=== PATIENT | female | born 2000 | race Two or more races ===

== ENCOUNTER 2018-08-16 13:15 | Emergency (ER) | payer MEDICAID ==
--- NOTE | 2018-08-16 13:30 | Emergency Department Record ---
History of Present Illness - General Chief complaint: ENT Stated complaint: SWELLING BEHIND RT EAR Source: Patient, Family Mode of Arrival: Ambulatory Limitations: No limitations - History of Present Illness Initial comments: 17 yo female presents with concern about swelling the right ear lobe. The onset was about 2 weeks ago. No fevers or chills. No changes in hearing or drainage from the ear. No trauma but it is at the site of a prior ear piercing. She has a history of renal transplant. She was admitted to [facility] for 4 days on antibiotics. She finished Cleocin 3 days ago. She states She does not feel better. She is eating and drinking normally. No fevers. Normal urination. She has not seen an ENT for this issue. She had a nurse follow up on August 11. [facility] Records 08/11/18 Negative HCG CR .77 CBC on 08/11 WBC 3.0 73% N ANC 1.9 H and P 08/04/18 IgA nephropathy s/p transplant 2015 RN Progress note 08/11: "Right ear still has a rather evolved and swollen infectious core from her piercing that is approximately the same size as it was before discharge on Friday. It has a brown scab formed over it..." complaint: Ear pain Location: R ear Severity: Moderate Quality: Aching Consistency: Constant Improves with: None Worsens with: Movement Context- Ear: Other - Related Data Home Medications Medication Instructions Recorded Confirmed Last Taken Amlodipine Besylate [Norvasc] 5 mg PO DAILY 08/16/18 08/16/18 08/16/18 Cholecalciferol (Vitamin D3) 1 tab PO DAILY 08/16/18 08/16/18 08/16/18 [Vitamin D3] Clindamycin HCl 08/16/18 Unknown Isradipine 1 tab PO ASDIR PRN 08/16/18 08/16/18 Unknown Losartan Potassium [Cozaar] 25 mg PO DAILY 08/16/18 08/16/18 08/16/18 Mycophenolate Mofetil [Cellcept] 500 mg PO QAM 08/16/18 08/16/18 08/16/18 Mycophenolate Mofetil [Cellcept] 750 mg PO QPM 08/16/18 08/16/18 08/15/18 Nystatin 100,000 unit PO DAILY 08/16/18 08/16/18 08/16/18 Prednisone [Prednisone 10Mg] 10 mg PO DAILY 08/16/18 08/16/18 08/16/18 Tacrolimus [Prograf] 5 mg PO QHS 08/16/18 08/16/18 08/15/18 Tacrolimus [Prograf] 6 mg PO QAM 08/16/18 08/16/18 08/16/18 Previous Rx's Medication Instructions Recorded Clindamycin HCl [Cleocin HCl] 300 mg PO TID #21 capsule 08/16/18 Allergies Allergy/AdvReac Type Severity Reaction Status Date / Time adhesive tape Allergy ITCHING Verified 08/16/18 13:24 vancomycin Allergy ANAPHYLAXIS Verified 08/16/18 13:24 Review of Systems Constitutional: Denies: Chills, Malaise, Weakness Eyes: Denies: Eye discharge, Eye pain, Photophobia, Vision change ENT: Reports: As per HPI, Ear pain. Denies: Congestion, Throat pain Respiratory: Denies: Cough, Dyspnea Cardiovascular: Denies: Chest pain, Syncope Endocrine: Denies: Fatigue Gastrointestinal: Denies: Abdominal pain, Diarrhea, Nausea, Vomiting Genitourinary: Denies: Dysuria Musculoskeletal: Denies: Arthralgia, Back pain, Joint swelling, Myalgia Skin: Denies: Bruising, Change in color, Rash Neurological: Denies: Headache, Numbness, Tingling, Vertigo Psychiatric: Denies: Anxiety Hematological/Lymphatic: Denies: Easy bleeding, Easy bruising, Swollen glands Physical Exam - General General Appearance: Alert, Oriented x3, Cooperative, No acute distress Limitations: No limitations - Head Head exam: Atraumatic, Normal inspection - Eye Eye exam: Normal appearance, PERRL. negative: Conjunctival injection, Scleral icterus - ENT ENT exam: Mucous membranes moist, Normal orophraynx, TM's normal bilaterally. negative: Mucous membranes dry Nasal Exam: Normal inspection Mouth exam: Normal external inspection Teeth exam: Normal inspection Throat exam: Normal inspection Image of Ears: 1 - firm, scabbed raised area in the area of prior piercing, no pus, no warmth , no drainage, similar appearance on the posterior side, no lobe or ear erythema to suggest cellulitis - Neck Neck exam: Normal inspection. negative: Lymphadenopathy, Tenderness - Respiratory Respiratory exam: Normal lung sounds bilaterally. negative: Wheezes - Neurological Neurological exam: Alert, Oriented X3 - Psychiatric Psychiatric exam: Normal affect, Normal mood. negative: Agitated, Anxious - Skin Skin exam: Dry, Intact, Normal color, Warm Course - Reevaluation(s) Reevaluation #1: No fever on vitals. No prior records on the EMR 08/16/18 13:45 08/16/18 14:11 The physical findings today correspond to the findings on the note on 08/11. The 08/11 note stated there was no change from the time of discharge. She is eating, drinking, urinating normally. Labs from 5 days ago were normal. She is afebrile. I will call her on-call doctor at [facility] to discuss a plan for her unresolving area on the ear. 08/16/18 14:[address] Rojas of the [facility]plant Nephrology [facility]. She has familiarity with the patient. We reviewed the 08/11 labs, todays examination, progress note. The lesion on the right ear does not seem overtly infected on today's examination. There does not appear to be any over cellulitis of the ear. The plan will be to have the Transplant Clinic refer her to ENT [facility]. The Clindamycin will be continued until that time. The patient was instructed to call the document coordinator if anything changes with the right ear findings or go directly to the [facility] ED for evaluation. She is to call immediately if fever, redness or any other concerns. Disposition Disposition: Discharge Clinical Impression: Earlobe lesion Disposition: Home, Self-Care Condition: (1) Good Instructions: Cyst (ED) Additional Instructions: Go to the [facility] ED if you have any fever, new redness or swelling of the ear Take the Clindamycin as directed Call your document coordinator tomorrow to get an update on the ENT referral DO not cut or poke anything in the area on the right ear Prescriptions: Clindamycin HCl [Cleocin HCl] 300 mg PO TID #21 capsule Forms: Patient Portal Access Time of Disposition: 14:30 Quality - Quality Measures Quality Measures: N/A - Blood Pressure Screening Does Patient Have Any of the Following: No Blood Pressure Classification: Normal BP Reading Systolic Measurement: 114 Diastolic Measurement: 72 Screening for High Blood Pressure: < Normal BP, F/U Not Required > [G8701]
== END 2018-08-16 14:35 | disposition home or self-care (01) ==
LOC: ER 13:15
DX: H61.899 Other specified disorders of external ear, unspecified ear (principal); Z94.0 Kidney transplant status
CPT/HCPCS: 99282; 99283

== ENCOUNTER 2018-12-31 12:43 | Emergency (ER) | payer MEDICAID ==
[2018-12-31] MEDS ORDERED: 0.9 % SODIUM CHLORIDE 1000ML 1,000 ML IV ONE (12:46)
--- NOTE | 2018-12-31 12:56 | Emergency Department Record ---
History of Present Illness - General Chief complaint: Flank Pain Stated complaint: KIDNEY AND BACK PAIN/HAD TRANSPLANT Time Seen by Provider: 12/31/18 12:45 Source: Patient, Family Mode of Arrival: Ambulatory Limitations: No limitations - History of Present Illness Initial comments: 18 yo female presents with subjective fever, aches, and pain over her t ransplanted kidney site. She has IgA nephropathy with a transplant in 2016. The onset of the symptoms was last night. She is on her transplant medication. No nausea or vomiting. She has mild back pain. She did have rejection at one point in time when she was off her medications. She has been compliance. [facility] Complaint: Other Onset/Timin -: Days(s) Radiation: R flank, RLQ Severity: Moderate Severity scale (1-10): 7 Quality: Aching Consistency: Constant Improves with: None Worsens with: None Associated Symptoms: Abdominal pain, Fever/chills, Headaches - Related Data Previous Rx's Medication Instructions Recorded Clindamycin HCl [Cleocin HCl] 300 mg PO TID #21 capsule 08/16/18 Allergies Allergy/AdvReac Type Severity Reaction Status Date / Time adhesive tape Allergy ITCHING Verified 12/31/18 12:51 vancomycin Allergy ANAPHYLAXIS Verified 12/31/18 12:51 Travel Screening - Travel/Exposure Within Last 30 Days Have you traveled within the last 30 days?: No Review of Systems Constitutional: Reports: Chills, Fever Eyes: Denies: Eye discharge, Vision change ENT: Denies: Congestion, Throat pain Respiratory: Denies: Cough, Dyspnea, Hemoptysis, Wheezes Cardiovascular: Denies: Chest pain, Palpitations, Syncope Endocrine: Denies: Fatigue, Polydipsia, Polyuria Gastrointestinal: Reports: Abdominal pain. Denies: Nausea, Vomiting Genitourinary: Denies: Dysuria, Urgency Musculoskeletal: Reports: Back pain (mild). Denies: Arthralgia, Myalgia Skin: Denies: Bruising, Change in color, Rash Neurological: Reports: Headache (comes and goes mild). Denies: Numbness, Vertigo, Weakness Psychiatric: Denies: Anxiety Hematological/Lymphatic: Denies: Blood Clots, Easy bleeding, Easy bruising Past Medical History - SOCIAL HISTORY Smoking Status: Never smoker Drug Use: None - RESPIRATORY Hx Respiratory Disorders: No - CARDIOVASCULAR Hx Cardio Disorders: No - NEURO Hx Neuro Disorders: No - GI Hx GI Disorders: No - Hx Genitourinary Disorders: Yes Hx Renal Disease: Yes - ENDOCRINE Hx Endocrine Disorders: No - MUSCULOSKELETAL Hx Musculoskeletal Disorders: No - PSYCH Hx Psych Problems: No - HEMATOLOGY/ONCOLOGY Hx Hematology/Oncology Disorders: No Family Medical History Hx Cancer: Brother/Sister Physical Exam - General General Appearance: Alert, Oriented x3, Cooperative, No acute distress Limitations: No limitations - Head Head exam: Atraumatic, Normal inspection - Eye Eye exam: Normal appearance, PERRL. negative: Conjunctival injection, Scleral icterus - ENT ENT exam: Normal exam, Mucous membranes moist Ear exam: Normal external inspection Nasal Exam: Normal inspection Mouth exam: Normal external inspection - Neck Neck exam: Normal inspection - Respiratory Respiratory exam: Normal lung sounds bilaterally. negative: Respiratory distress, Rhonchi, Stridor, Wheezes - Cardiovascular Cardiovascular Exam: Regular rate, Normal rhythm, Normal heart sounds - GI/Abdominal GI/Abdominal exam: Soft, Tenderness (tender over the scar area of the transplanted kidney). negative: Distended - Rectal Rectal exam: Deferred - exam: Deferred - Extremities Extremities exam: Normal inspection. negative: Pedal edema, Tenderness - Back Back exam: Denies: CVA tenderness (R), CVA tenderness (L), Paraspinal tenderness, Tenderness - Neurological Neurological exam: Alert, Oriented X3 - Psychiatric Psychiatric exam: Normal affect, Normal mood - Skin Skin exam: Dry, Intact, Normal color, Warm Course Vital Signs 12/31/18 12:47 Temperature 98.6 F Pulse Rate 126 H Respiratory 18 Rate Blood Pressure 126/90 Pulse Ox 100 - Reevaluation(s) Reevaluation #1: 12/31/18 13:46 The CBC was reviewed The WBC count is 12 The BMP was reviewed The CR is 1.2 (Prior in October was 0.9 on 11/16/18) 12/31/18 13:46 Waiting for UA. 12/31/18 14:00 CRP is 4 12/31/18 14:05 ESR is 23 12/31/18 14:15 The UCG is negative The UA is N positive and LE positive. Micro pending. 12/31/18 14:20 Micro: 7-10 RBC 36-50 WBC +4 Bacteria 10-15 epi's The patient was informed [facility] education and training coordinator will be called. 12/31/18 14:31 Fanny (disability services coordinator) was contacted. [phone] The recommendation is for transfer to [facility] ED Rocephin was the preferred antibiotic 12/31/18 14:38 Dr Polk accepts the patient for transfer to the [facility] ED for further evaluation 12/31/18 14:53 Medical Decision Making - Lab Data Result diagrams: 12/31/18 13:20 12/31/18 13:20 Disposition Disposition: Transfer Clinical Impression: Complicated urinary tract infection, Renal transplant recipient Disposition: Acute Care Hospital Transfer Transfer To: [facility] Reason For Transfer: Urinary Infection with transplant Accepting Physician: Jam Time Discussed w/Accepting Physician: 14:52 Condition: (2) Stable Forms: Patient Portal Access Time of Disposition: 14:38 Quality - Quality Measures Quality Measures: N/A - Blood Pressure Screening Does Patient Have Any of the Following: No Blood Pressure Classification: Hypertensive Reading Systolic Measurement: 126 Diastolic Measurement: 90 Screening for High Blood Pressure: < Pre-Hypertensive BP, F/U Documented > [G8950] Pre-Hypertensive Follow-up Interventions: Referral to alternative/primary care provider.
[2018-12-31 13:27] LABS: HEMATOCRIT 39.9 % (35.0-47.0); MEAN CELL VOLUME 83.1 fl (81-97); MEAN CORPUSCULAR HEMOGLOBIN 27.1 pg (27-33); MEAN CORPUSCULAR HGB CONC 32.6 g/dl (32-36); MEAN PLATELET VOLUME 11.9 fl (7.4-10.4); PLATELET COUNT 154 K/uL (130-400); WHITE BLOOD COUNT W/O DIFF 12.8 K/uL (4.2-12.2)
[2018-12-31 13:38] LABS: BLOOD UREA NITROGEN 18 mg/dL (6-20); CREATININE 1.2 mg/dL (0.5-0.9); EST GLOMERULAR FILTRATION RATE > 60 mL/min; TOTAL PROTEIN 7.3 g/dL (6.6-8.7)
[2018-12-31 13:40] LABS: GLUCOSE,RANDOM 100 mg/dL (74-109)
[2018-12-31 13:43] LABS: ALB/GLOB RATIO 1.4 (1.1-1.8); ALBUMIN 4.3 g/dL (4.0-5.0); ALKALINE PHOSPHATASE 63 U/L (35-104); ALT/SGPT 7 U/L (<33); AST/SGOT 19 U/L (10.0-35.0)
[2018-12-31] MEDS ORDERED: MORPHINE SULFATE 10MG/1ML **1ML VIAL IVP ONE (14:09)
[2018-12-31 14:10] LABS: URINE BILIRUBIN NEGATIVE (NEGATIVE); URINE BLOOD MODERATE (NEGATIVE); URINE COLOR YELLOW; URINE GLUCOSE (UA) NEGATIVE (NEGATIVE); URINE KETONE TRACE (NEGATIVE); URINE LEUKOCYTE ESTERASE MODERATE (NEGATIVE); URINE NITRITE POSITIVE (NEGATIVE); URINE PROTEIN TRACE (NEGATIVE); URINE UROBILINOGEN 0.2 E.U./dL (0.20 - 1.00)
[2018-12-31 14:12] LABS: URINE APPEARANCE CLOUDY
[2018-12-31 14:13] LABS: HCG,QUALITATIVE URINE NEGATIVE (NEGATIVE)
[2018-12-31 14:16] LABS: URINE WBC 36 - 50 (0-2/hpf)
[2018-12-31 14:17] LABS: URINE BACTERIA 4+
[2018-12-31] MEDS ORDERED: CEFTRIAXONE 1GM/50ML BAG 1 GM/50 ML BAG IVPB ONE (14:35)
[2018-12-31] MEDS ORDERED: ONDANSETRON HCL IV 4 MG/2 ML VIAL IVP ONE (15:22)
== END 2018-12-31 15:25 | disposition short-term general hospital (02) ==
LOC: ER 12:43
DX: N39.0 Urinary tract infection, site not specified (principal); R50.81 Fever presenting with conditions classified elsewhere; R31.29 Other microscopic hematuria; M54.6 Pain in thoracic spine; R51 Headache; Z94.0 Kidney transplant status
CPT/HCPCS: 99285 ×2; 96365; 96375; 96361; 85651; 86140; 80053; 81001; 81025; 85027; J2405; J0696; J2270; J7030

== ENCOUNTER 2019-05-11 16:25 | Emergency (ER) | payer MEDICAID ==
--- NOTE | 2019-05-11 16:42 | Emergency Department Record ---
History of Present Illness - General Chief complaint: Rash Stated complaint: RASH Time Seen by Provider: 05/11/19 16:27 Source: Patient, Family Mode of Arrival: Ambulatory Limitations: No limitations - History of Present Illness Initial comments: 18 yo female presents with many weeks of a rash on the upper chest and back. The skin has areas of lightening of the pigmentation. No redness, sores, blisters, pain or itching. No other associated symptoms related to the rash. Yesterday she states it burned a little bit with urination. No fever. No ab dominal or back pain. Last week she had a soft mucous like bowel movement. She is a renal transplant patient through [facility] complaint: Rash -: Month(s) Location: Chest, Back Severity: Mild Quality: Other (no sensation over the rash) Improves with: None Worsens with: None Context: None Associated symptoms: Denies other symptoms Treatments Prior to Arrival: None - Related Data Previous Rx's Medication Instructions Recorded Cephalexin [Keflex] 500 mg PO QID #40 cap 05/11/19 Ketoconazole [Nizoral] 120 ml TP Q72HR #1 shampoo 05/11/19 Allergies Allergy/AdvReac Type Severity Reaction Status Date / Time adhesive tape Allergy ITCHING Verified 05/11/19 16:36 vancomycin Allergy ANAPHYLAXIS Verified 05/11/19 16:36 Travel Screening - Travel/Exposure Within Last 30 Days Have you traveled within the last 30 days?: No Review of Systems Constitutional: Denies: Chills, Fever, Malaise, Weakness Eyes: Denies: Eye discharge, Eye pain, Photophobia, Vision change ENT: Denies: Congestion, Throat pain Respiratory: Denies: Cough, Dyspnea, Hemoptysis, Wheezes Cardiovascular: Denies: Chest pain, Palpitations, Syncope Endocrine: Denies: Fatigue, Polydipsia, Polyuria Gastrointestinal: Reports: Diarrhea (one time). Denies: Abdominal pain, Constipation, Nausea, Vomiting Genitourinary: Reports: Dysuria (one time yesterday) Musculoskeletal: Denies: Arthralgia, Back pain, Myalgia Skin: Denies: Bruising, Change in color, Lesions, Rash Neurological: Denies: Headache Psychiatric: Denies: Anxiety Hematological/Lymphatic: Denies: Easy bleeding, Easy bruising Past Medical History - SOCIAL HISTORY Smoking Status: Never smoker Drug Use: None - RESPIRATORY Hx Respiratory Disorders: No - CARDIOVASCULAR Hx Cardio Disorders: No - NEURO Hx Neuro Disorders: No - GI Hx GI Disorders: No - Hx Genitourinary Disorders: Yes Hx Renal Disease: Yes - ENDOCRINE Hx Endocrine Disorders: No - MUSCULOSKELETAL Hx Musculoskeletal Disorders: No - PSYCH Hx Psych Problems: No - HEMATOLOGY/ONCOLOGY Hx Hematology/Oncology Disorders: No Family Medical History Hx Cancer: Brother/Sister Physical Exam - General General Appearance: Alert, Oriented x3, Cooperative, No acute distress Limitations: No limitations - Head Head exam: Atraumatic, Normal inspection - Eye Eye exam: Normal appearance, PERRL. negative: Conjunctival injection, Scleral icterus - ENT ENT exam: Normal exam Ear exam: Normal external inspection Nasal Exam: Normal inspection Mouth exam: Normal external inspection - Neck Neck exam: Normal inspection, Full ROM. negative: Lymphadenopathy - Respiratory Respiratory exam: Normal lung sounds bilaterally. negative: Rhonchi, Stridor, Wheezes - Cardiovascular Cardiovascular Exam: Regular rate, Normal rhythm, Normal heart sounds - GI/Abdominal GI/Abdominal exam: Soft. negative: Tenderness - Extremities Extremities exam: Normal inspection - Back Back exam: Denies: CVA tenderness (R), CVA tenderness (L) - Neurological Neurological exam: Alert, Oriented X3 - Psychiatric Psychiatric exam: Normal affect, Normal mood. negative: Agitated, Anxious - Skin Skin exam: Rash, Other (hypopigmentation) Distribution of rash: Back, Chest Course Vital Signs 05/11/19 16:31 Temperature 99.2 F Pulse Rate 101 H Respiratory 18 Rate Blood Pressure 137/108 Pulse Ox 98 - Reevaluation(s) Reevaluation #1: 05/11/19 17:18 The CBC was reviewed WBC is 7.2 with Hgb of 11.3 and Plt of 233 UCG is negative UA is Nitrite -, LE moderate, few bacteria, 21-35 WBCs, 7-10 epi's 05/11/19 17:20 05/11/19 17:40 GFR > 60 CR is 1.0 -Line at [facility] will be call to discuss the UTI with renal transplant pharmacy operations coordinator. 05/11/19 18:13 I WENDY Anderson of [facility] Transplant. We discussed the vitals, the UA, the CBC, and BMP. The patient is well appearing and not ill appearing. He recommended Keflex QID for 10 days This was discussed with the patient. She is to call the pharmacy operations coordinator transplant doctor if any fever, chills, nausea, vomiting or new symptoms. 05/11/19 18:50 Medical Decision Making - Lab Data Result diagrams: 05/11/19 17:16 05/11/19 16:38 Disposition Disposition: Discharge Clinical Impression: Tinea versicolor Urinary tract infection Qualifiers: Urinary tract infection type: site unspecified Hematuria presence: without hematuria Qualified Code(s): N39.0 - Urinary tract infection, site not specified Disposition: Home, Self-Care Condition: (1) Good Instructions: Urinary Tract Infection in Women (ED), Tinea Versicolor (ED) Additional Instructions: Call [facility] for a recheck this week Call them if you have fever, pain, vomiting or any new concerns Take the antibiotic as directed for 10 days. Prescriptions: Ketoconazole [Nizoral] 120 ml TP Q72HR #1 shampoo Cephalexin [Keflex] 500 mg PO QID #40 cap Forms: Patient Portal Access Time of Disposition: 18:14 Quality - Quality Measures Quality Measures: N/A - Blood Pressure Screening Does Patient Have Any of the Following: No Blood Pressure Classification: Hypertensive Reading Systolic Measurement: 137 Diastolic Measurement: 108 Screening for High Blood Pressure: < Pre-Hypertensive BP, F/U Documented > [G8950] Pre-Hypertensive Follow-up Interventions: Referral to alternative/primary care provider.
[2019-05-11 16:48] LABS: URINE APPEARANCE CLEAR; URINE BILIRUBIN NEGATIVE (NEGATIVE); URINE BLOOD LARGE (NEGATIVE); URINE COLOR YELLOW; URINE GLUCOSE (UA) NEGATIVE (NEGATIVE); URINE KETONE NEGATIVE (NEGATIVE); URINE LEUKOCYTE ESTERASE MODERATE (NEGATIVE); URINE NITRITE NEGATIVE (NEGATIVE); URINE PROTEIN TRACE (NEGATIVE); URINE UROBILINOGEN 0.2 E.U./dL (0.20 - 1.00)
[2019-05-11 16:58] LABS: URINE BACTERIA FEW; URINE WBC 21 - 35 (0-2/hpf)
[2019-05-11 16:59] LABS: HCG,QUALITATIVE URINE NEGATIVE (NEGATIVE)
[2019-05-11 17:28] LABS: BLOOD UREA NITROGEN 22 mg/dL (6-20); EST GLOMERULAR FILTRATION RATE > 60 mL/min
[2019-05-11 17:31] LABS: GLUCOSE,RANDOM 87 mg/dL (74-109)
[2019-05-11] MEDS: CEPHALEXIN 500 MG CAPSULE PO STA (18:17)
== END 2019-05-11 18:20 | disposition home or self-care (01) ==
LOC: ER 16:25
DX: N39.0 Urinary tract infection, site not specified (principal); B36.0 Pityriasis versicolor; Z94.0 Kidney transplant status; O02.1 Missed abortion
CPT/HCPCS: 80048; 81001; 81025; 84703; 85025; 99284

== ENCOUNTER 2019-07-28 21:38 | Emergency (ER) | payer MEDICAID ==
--- NOTE | 2019-07-28 21:47 | Emergency Department Record ---
History of Present Illness - General Chief Complaint: Fever Stated Complaint: FEVER,EAR THROAT PAIN Time Seen by Provider: 07/28/19 21:39 Source: Patient Mode of Arrival: Ambulatory Limitations: No limitations - History of Present Illness Initial Comments: 18 yo female presents to ED for evaluation of subjective fever symptoms, sore throat, and ear pain but reports that she is also concerned about possible urinary tract infection. Patient is s/p renal transplant, and wants to ensure that her kidney function is at her baseline. Patient denies flank pain symptoms, nausea, vomiting, or abdominal pain symptoms. MD Complaint: Fever, Weakness Onset/Timin -: Week(s) Context: On immunosuppressant(s) Associated Symptoms: Denies other symptoms Treatments Prior to Arrival: None - Related Data Previous Rx's Medication Instructions Recorded Cephalexin [Keflex] 500 mg PO QID #40 cap 05/11/19 Ketoconazole [Nizoral] 120 ml TP Q72HR #1 shampoo 05/11/19 Cephalexin [Keflex] 500 mg PO TID #20 cap 07/28/19 Allergies Allergy/AdvReac Type Severity Reaction Status Date / Time adhesive tape Allergy ITCHING Verified 05/11/19 16:36 vancomycin Allergy ANAPHYLAXIS Verified 05/11/19 16:36 Review of Systems Constitutional: Reports: Chills, Malaise. Denies: Night sweats Eyes: Denies: Eye discharge, Eye pain ENT: Reports: Ear pain, Throat pain. Denies: Congestion, Epistaxis Respiratory: Denies: Cough, Dyspnea, Hemoptysis Cardiovascular: Denies: Chest pain, Dyspnea on exertion Endocrine: Denies: Fatigue, Heat or cold intolerance Gastrointestinal: Denies: Abdominal pain, Nausea, Vomiting Genitourinary: Reports: Dysuria. Denies: Incontinence, Retention Musculoskeletal: Denies: Arthralgia, Back pain Skin: Denies: Bruising, Change in color Neurological: Denies: Abnormal gait, Confusion, Headache, Seizure Psychiatric: Denies: Anxiety Hematological/Lymphatic: Denies: Anemia, Blood Clots Past Medical History - SOCIAL HISTORY Smoking Status: Never smoker Drug Use: None - RESPIRATORY Hx Respiratory Disorders: No - CARDIOVASCULAR Hx Cardio Disorders: No - NEURO Hx Neuro Disorders: No - GI Hx GI Disorders: No - Hx Genitourinary Disorders: Yes Hx Renal Disease: Yes - ENDOCRINE Hx Endocrine Disorders: No - MUSCULOSKELETAL Hx Musculoskeletal Disorders: No - PSYCH Hx Psych Problems: No - HEMATOLOGY/ONCOLOGY Hx Hematology/Oncology Disorders: No Family Medical History Hx Cancer: Brother/Sister Physical Exam - General General Appearance: Alert, Oriented x3, Cooperative, No acute distress, Other (Smiling, well appearing on examination. VSS.) Limitations: No limitations - Head Head exam: Atraumatic, Normocephalic, Normal inspection Head exam detail: negative: Abrasion, Contusion, Ahmadi's sign, General tenderness, Hematoma, Laceration - Eye Eye exam: Normal appearance. negative: Conjunctival injection, Periorbital swelling, Periorbital tenderness, Scleral icterus - ENT ENT exam: Normal orophraynx, TM's normal bilaterally Ear exam: negative: Auricular hematoma, Auricular trauma Nasal Exam: negative: Active bleeding, Discharge, Dried blood, Foreign body Mouth exam: negative: Drooling, Laceration, Muffled voice, Tongue elevation Throat exam: negative: Tonsillar erythema, Tonsillomegaly, R peritonsillar mass, L peritonsillar mass - Neck Neck exam: Normal inspection. negative: Meningismus, Tenderness - Respiratory Respiratory exam: Normal lung sounds bilaterally. negative: Rales, Respiratory distress, Rhonchi, Stridor - Cardiovascular Cardiovascular Exam: Regular rate, Normal rhythm, Normal heart sounds - GI/Abdominal GI/Abdominal exam: Soft. negative: Rebound, Rigid, Tenderness - Rectal Rectal exam: Deferred - exam: Deferred - Extremities Extremities exam: Other (Fistula left forearm). negative: Pedal edema, Tenderness - Back Back exam: Denies: CVA tenderness (R), CVA tenderness (L) - Neurological Neurological exam: Alert, Normal gait, Oriented X3 - Psychiatric Psychiatric exam: Normal affect, Normal mood - Skin Skin exam: Normal color. negative: Abrasion Type of lesion: negative: abrasion Course Vital Signs 07/28/19 21:43 Temperature 98.6 F Pulse Rate [ 99 H Pulse Ox Probe] Respiratory 20 Rate Blood Pressure 124/89 [Left Arm] Pulse Ox 99 - Reevaluation(s) Reevaluation #1: 07/28/19 22:30 Laboratory studies were reviewed and appear grossly unremarkable for an acute process except for the following: CO2 19 BUN 26 Creatinine 1.2 UA was reviewed: 3-6 RBCs 10-15 WBCs 3-6 Epithelial cells Many Bacteria Findings appear c/w acute UTI, will treat with Keflex as directed. Patient was updated on all results and a started on Keflex prior to discharge. Patient appears stable for discharge at this time. Medical Decision Making - Lab Data Result diagrams: 07/28/19 21:58 07/28/19 21:58 Disposition Disposition: Discharge Clinical Impression: Acute cystitis Qualifiers: Hematuria presence: without hematuria Qualified Code(s): N30.00 - Acute cystitis without hematuria Disposition: Home, Self-Care Condition: (2) Stable Instructions: Upper Respiratory Infection (ED) Additional Instructions: Return to ED if your symptoms worsen or if you have any concerns. Keflex as directed. Follow-up with your family doctor in 3-5 days as directed. Prescriptions: Cephalexin [Keflex] 500 mg PO TID #20 cap Forms: Patient Portal Access Time of Disposition: 22:33 Quality - Quality Measures Quality Measures: N/A - Blood Pressure Screening Does Patient Have Any of the Following: No Blood Pressure Classification: Pre-Hypertensive BP Reading Systolic Measurement: 124 Diastolic Measurement: 89 Screening for High Blood Pressure: < Pre-Hypertensive BP, F/U Documented > [G8950] Pre-Hypertensive Follow-up Interventions: Referral to alternative/primary care provider.
[2019-07-28 22:04] LABS: HEMATOCRIT 36.7 % (35.0-47.0); HEMOGLOBIN 11.6 gm/dl (11.6-16.0); MEAN CELL VOLUME 84.6 fl (81-97); MEAN CORPUSCULAR HEMOGLOBIN 26.7 pg (27-33); MEAN CORPUSCULAR HGB CONC 31.6 g/dl (32-36); MEAN PLATELET VOLUME 10.8 fl (7.4-10.4); PLATELET COUNT 268 K/uL (130-400); RED BLOOD COUNT 4.34 M/uL (3.80-5.40); RED CELL DISTRIBUTION WIDTH 13.6 % (11.5-14.5); WHITE BLOOD COUNT W/O DIFF 10.8 K/uL (4.2-12.2)
[2019-07-28 22:05] LABS: URINE BILIRUBIN NEGATIVE (NEGATIVE); URINE BLOOD SMALL (NEGATIVE); URINE COLOR YELLOW; URINE GLUCOSE (UA) NEGATIVE (NEGATIVE); URINE KETONE NEGATIVE (NEGATIVE); URINE LEUKOCYTE ESTERASE MODERATE (NEGATIVE); URINE NITRITE NEGATIVE (NEGATIVE); URINE PROTEIN NEGATIVE (NEGATIVE); URINE UROBILINOGEN 0.2 E.U./dL (0.20 - 1.00)
[2019-07-28 22:07] LABS: URINE APPEARANCE SL CLOUDY
[2019-07-28 22:14] LABS: INFLUENZA A NEGATIVE (NEGATIVE); INFLUENZA B NEGATIVE (NEGATIVE)
[2019-07-28 22:18] LABS: BLOOD UREA NITROGEN 26 mg/dL (6-20); CREATININE 1.2 mg/dL (0.5-0.9); EST GLOMERULAR FILTRATION RATE > 60 mL/min; URINE BACTERIA MANY
[2019-07-28 22:21] LABS: GLUCOSE,RANDOM 126 mg/dL (74-109)
[2019-07-28] MEDS ORDERED: CEPHALEXIN 500 MG CAPSULE PO STA (22:33)
[2019-07-28 22:36] LABS: ABSOLUTE NEUTROPHIL COUNT 10.53
[2019-07-28 22:37] LABS: PLATELET ESTIMATE NORMAL (NORMAL)
== END 2019-07-28 22:40 | disposition home or self-care (01) ==
LOC: ER 21:38
DX: N30.00 Acute cystitis without hematuria (principal); J02.9 Acute pharyngitis, unspecified; R53.1 Weakness; Z94.0 Kidney transplant status
CPT/HCPCS: 80048; 81001; 85027; 87400; 99284